=== PATIENT | female | born 1975 | race Caucasian/White ===

== ENCOUNTER → 2020-11-11 13:03 | Outpatient (CLI) | payer OTHER, SELFPAY ==
[2020-11-11 14:53] LABS: COVID19 -Nasal RAPID Negative (Negative)
== END ==
PROVIDERS: PCP Family Medicine; Visit Provider Nurse Practitioner
DX: Z20.828 Contact with and (suspected) exposure to other viral communicable diseases (principal)
CPT/HCPCS: 87635

== ENCOUNTER 2020-11-12 06:25 | Inpatient (IN) | payer OTHER, SELFPAY ==
[2020-11-03 12:51] VITALS: BMI 36.6
[2020-11-12] VITALS (23 sets, daily range): BP systolic 106–150; BP diastolic 63–88; PULSE 72–98; RESP 12–19; TEMP 36.1–37.1; O2SAT 93–99; BMI 38.6
--- NOTE | 2020-11-12 | DI.RAD.S_ITS ---
PROCEDURE: XR CERVICAL SPINE 2V OR 3V INDICATIONS: C56-C67 ANTERIOR DISCECTOMY W/ BONE GRAFT. TECHNIQUE: 2 fluoroscopic view(s) of the cervical spine were acquired. COMPARISON: [facility] [place], CR, XR CERVICAL SPINE 2 OR 3 VIEWS, 09/23/2020, 16:22. FINDINGS: Intraoperative images of C5-C6 and C6-C7 discectomy. Endotracheal tube. Intra esophageal temperature probe. IMPRESSION: Intraoperative guidance provided. Dictated by: Jorge Luis Gómez M.D. on 11/12/2020 at 9:37 Approved by: Jorge Luis Gómez M.D. on 11/12/2020 at 9:39
--- NOTE | 2020-11-12 07:14 | PM.PREOP ---
Pre-operative Note COVID-19 COVID-19 status: Negative Result date/Date tested (Pos, Neg/Pending): 11/11/20 Interval Note History & Physical reviewed/Exam performed by Physician: Yes Changes to H&P: No
[2020-11-12] MEDS: ACETAMINOPHEN 325 MG TABLET 975 MG PO (07:19)
[2020-11-12] MEDS: SCOPOLAMINE 1 PATCH TOP (07:19)
[2020-11-12] MEDS: LACTATED RINGERS 1,000 ML 42 ML IV (07:19)
[2020-11-12] MEDS: CLINDAMYCIN 900 MG/50 ML PIGGYBACK 50 MG IV ×2 (07:54→15:56)
--- NOTE | 2020-11-12 08:15 | SUR.OPER ---
Supine on padded OR bed, head on gel donut, arm padded and tucked at side, legs uncrossed, safety belt at thigh, tape over blanket over lower legs, 2 rolled towels vertically placed between Shoulder blades.
[2020-11-12] MEDS: THROMBIN (RECOMBINANT) 5,000 UNIT VIAL 5000 UNIT TOP (08:45)
[2020-11-12] MEDS: SODIUM CHLORIDE 0.9% 1,000 ML, GENTAMICIN 80 MG IRR (08:46)
[2020-11-12] MEDS: BUPIVACAINE 0.25% W/ EPI 30 ML VIAL 60 ML INJ (08:46)
--- NOTE | 2020-11-12 09:23 | PM.OP.1 ---
Operative Date/Time/Diagnoses Date of procedure: 11/12/20 Time of procedure: 09:23 Pre-op diagnosis: Cervical stenosis with myelopathy Post-op diagnosis: same Procedure & Clinicians Procedure: C5-6, C6-7 ACDF with cages Iliac crest bone graft aspirate Use of microscope Same procedure as scheduled: Yes Indications: [age] year old female with cervical stenosis and myelopathy. They had failed conservative management and requested operative intervention. Risks and benefits of surgery were discussed and appropriate consents were obtained. Surgeon: Tyrel Rojo Bias Machine Operator Helper: Jessica Amador Anesthesia Type: General Operative Notes Findings: None Closure Type: primary Specimen(s): none sent Prosthetic devices, grafts, tissues, transplants, or devices: Efrem MEENAKSHI-C Estimated Blood Loss (mL): 5 Procedure in detail: Patient was brought to the operating room and intubated on the table. A time-out was performed. Preoperative antibiotics were given. The neck was prepped and draped in the standard sterile fashion. Using a skin fold, we made a 3 cm oblique incision on the left side. We used Bovie to go through the platysma and then did a standard anterolateral blunt dissection down to the precervical fascia. Fascia was nicked and elevated up. A marker was placed and x-ray was taken for localization. We then subperiosteally elevated up the longus colli muscles. Self-retaining retractors were placed. Hartly pins were placed. We then brought in the microscope. A scalpel used to perform an annulotomy. We then used a combination of pituitaries and curettes and Kerrison to perform a complete anterior diskectomy at C5-6. We used the bur to take down the posterior osteophytes and decorticate the endplate. We took down the PLL and used Kerrison to remove any posterior disc material and osteophytes. At the end we could from the nerve hook cephalad caudally and out the foramen and everything was opened. A small stab incision was made over the left anterior iliac crest. A Jamshidi needle was advanced into the pelvis and 2 mL of bone marrow was aspirated. We then used the trials. We then packed a 14 x 17 x 6 mm MEENAKSHI-C cage with Primagen bone graft and the iliac crest harvest. The cage was placed under fluoroscopic guidance. We then placed our two locking plates. We then moved our retractors down to the C6-7 level. A C6-7 diskectomy was performed with an annulotomy, pituitaries, curettes, and Kerrisons. We used the bur to decorticate the endplates and and take down the posterior osteophytes. The PLL was removed. We cleared all the remaining posterior material until we could easily move the nerve hook with no pressure. We trialed and then placed another 14 x 17 x 6 mm cage with bone graft and locking plate. The self-retaining retractors and Hartly pins were removed and final x-rays taken. The wound was irrigated. There was no bleeding. The carotid was beating nicely. The platysma was closed. The superficial was closed. The skin was closed. A sterile dressing was placed. They were then extubated and brought to recovery room with no complications. Complications: none Post-operative Condition: stable Disposition: PACU Plan for aftercare: Inpatient overnight. Up with PT. Soft collar for comfort.
[2020-11-12] MEDS: LORazepam 2 MG/ML INJ 0.25 MG IV (09:38)
[2020-11-12] MEDS: fentaNYL 100 MCG/2 ML INJ IV ×2 (09:46→09:57)
[2020-11-12] MEDS: OXYCODONE IR 5 MG TABLET PO ×2 (10:01→10:31)
[2020-11-12] MEDS: LACTATED RINGERS 1,000 ML 125 ML IV (10:56)
--- NOTE | 2020-11-12 14:50 | PT.IIE ---
Current Diagnoses Spondylosis without myelopathy or radiculopathy, cervical region (11/12/20) Spinal stenosis, cervical region (11/12/20) Surgery Performed Operation Date: 11/12/20 07:45 Actual Procedures p C56 and C67 Anterior cervical discectomy and fusion w/bone graft - Tyrel Rojo MD Surgical History (Last Updated 11/03/20 @ 13:14 by Chantal Galeas, RN) History of arthroscopy of both knees Hx of appendectomy Hx of laparoscopy Status post loop electrosurgical excision procedure (LEEP) of cervix Medical History (Last Updated 11/03/20 @ 13:18 by Chantal Galeas RN) Anemia Arthritis MARIBEL III (cervical intraepithelial neoplasia III) Constipation Depression Easy bruisability GERD (gastroesophageal reflux disease) HLD (hyperlipidemia) Kidney injury Nightmares associated with chronic post-traumatic stress disorder Pneumonia PTSD (post-traumatic stress disorder) Physical Therapy Inpatient Evaluation/Re-Eval M1 PT/OT-IP Prior Functional Status Start: 11/12/20 14:49 Freq: NEEDED Status: Active Protocol: Document 11/12/20 14:50 DLM (Rec: 11/12/20 15:05 DLM [id number]) Medical Review Prior Functional Status Medical History Reviewed Yes Diet/Fluid Consistency Regular Communication WNL Mobility and Gait Independent without device, community distances Activities of Daily Living and IADL's Independent, UE's were getting progressively weaker due to neck issues Social History Household Members spouse,children Living Arrangements Mobile home Number of Floors (Floors) One Floor Number of Stairs To Enter/Railing? 2 with two rails Home Environment High Toilet Home Equipment Grab Bars In Shower Additional Social History Comment Pt and her work in home health care, pt has been having difficulty with lifting associated with her neck pain M2 PT-IP Current Condition Start: 11/12/20 14:49 Freq: NEEDED Status: Active Protocol: Document 11/12/20 14:50 DLM (Rec: 11/12/20 15:05 DLM [id number]) Physical Therapy Current Condition Current Condition Evaluation Date 11/12/20 Treatment Diagnosis C5-6, C6-7 ACDF with cage, impaired mobility/gait Onset Date 11/12/20 Precautions Cervical Spine Precautions Soft Collar for Comfort,No Heavy Lifting,Log Roll Other Precautions pt reports plan for her to get a bone stimulator post-op M3 PT-IP Subjective Start: 11/12/20 14:49 Freq: NEEDED Status: Active Protocol: Document 11/12/20 14:50 DLM (Rec: 11/12/20 15:05 DL [id number]) Subjective Physical Therapy Visit Type Type Initial Evaluation Visit Start Time 14:20 Visit Stop Time 14:50 Total Visit Minutes 30 Number of GUN EXAMINER Visits 0 Physical Therapy Visit Comments Patient Comments she reports her arms feel warm which is better than before surgery where they were always cold, her arms still feel weak Patient Goals discharge home Therapy Pain Assessment Pain When Pain Assessed After Treatment Pain Present Pain Present Pain Reported Location Posterior Neck Intensity 3 Scale Used Numeric (0 - 10) Description Aching Pain Behaviors Facial Grimacing Pain Management Techniques Re-positioning M4 PT-IP Mobility and Gait Start: 11/12/20 14:49 Freq: NEEDED Status: Active Protocol: Document 11/12/20 14:50 DLM (Rec: 11/12/20 15:05 [facility] [id number]) PT-Bed Mobility Assessment Rolling Type of Rolling Roll to Right Level of Assist Independent Supine to Sit Supine to Sit Standby Assistance,Head of Bed Elevated Sit to Supine Sit to Supine Independent Scooting Scooting to Edge of Bed Independent PT-Transfer Assessment Sit to and From Stand Sit to and from Stand Standby Assistance,Contact Guard Assistance Equipment Transfer Assistive Device None Transfers Transfer Destination Bedside Commode Transfer Technique Stand Step Pivot Transfer Ability Level of Assist Contact Guard Assistance,Use of Upper Extremities Comments Mobility Comments she reports feeling a little unsteady on her feet post-op and needed hand held assist when up on her feet moving Gait Assessment Gait Gait Assistance Required: Contact Guard Assist,Minimum Assistance Distance (Feet) 20 Assistive Devices Assistive Device Gait Belt Orthotic/Prosthetic Devices or Brace: Yes Factors Limiting Gait Function Factors Limiting Gait Function Decreased Activity Tolerance, Pain,Poor Balance Comments Gait Comments she gets tired with gait, seated rest breaks between 2 gait trials, pt also up to bedside commode to urinate PT-Balance Assessment Sitting Balance and Reactions Static Sitting Balance Ability Normal Dynamic Sitting Balance Ability Good Standing Balance and Reactions Static Standing Balance Ability Fair Dynamic Standing Balance Ability Fair M5 PT-IP Objective Assessments Start: 11/12/20 14:49 Freq: NEEDED Status: Active Protocol: Document 11/12/20 14:50 DLM (Rec: 11/12/20 15:05 DL [id number]) Orientation Orientation/Cognition Level of Alertness Alert Orientation Name,Age,Birthday,Month,Date, Year,Day of Week,Place, Situation Language Function Ability No Deficits Noted Safety Awareness Understands Safety Issues Memory Description No Deficits Noted Gross Range of Motion Upper Extremity ROM Assessment Within Functional Limits Impairments cervical ROM not tested since she is post-op and in soft cervical collar Lower Extremity ROM Assessment Within Functional Limits Strength Upper Extremity Strength Shoulder moving functionally, not tested to end ranges since surgery today Elbow WFL Wrist WFL Hand WFL Lower Extremity Strength Assessment Within Functional Limits Coordination Assessment Gross Coordination Gross Coordination WNL Sensation Assessment Comments Sensation Comments she describes her arms as feeling warm today, she reports her feet burn if they get too small business consultant bed Muscle Tone Muscle Tone WNL Yes M6 PT-IP Treatment Start: 11/12/20 14:49 Freq: NEEDED Status: Active Protocol: Document 11/12/20 14:50 DLM (Rec: 11/12/20 15:05 DL [id number]) Physical Therapy Treatment Education Education Provided Precautions,Post-Op Packet, Safety Other Treatments Other Treatment Performed Her spouse is present and answered his questions about post-op restrictions and progression M7 PT-IP Assessment and Plan Start: 11/12/20 14:49 Freq: NEEDED Status: Active Protocol: Document 11/12/20 14:50 DLM (Rec: 11/12/20 15:05 DLM [id number]) PT Summary Assessment and Plan Potential Rehabilitation Potential Excellent Status of Condition at Evaluation Evolving Summary Impairments Pain,ROM,Strength Assessment Summary Abigail is alert and willing to get out of bed today. She tolerated short distances of gait in the room with mild unsteadiness. Her is present this visit and is prepared to assist her at discharge. She fatigues quickly today and returned to bed after activity where she fell asleep. She is tolerating her soft cervical collar well over-all. If she continues to progress well I anticipate she will be able to discharge home tomorrow. Will plan to see her again tomorrow for additional post-op training. Goals Bed Mobility Goal Independent Transfer Goal Independent Gait Goal Independent Gait Distance 100 feet Other Goals up and down 2 steps with 2 rails and SBA Days to Meet Goals 2 Frequency of Treatment Frequency Of Treatment Twice a Day Treatment Plan Physical Therapy Treatment Plan Bed Mobility Training,Transfer Training,Gait Training, Therapeutic Exercise,Balance Retraining,Post Op Education, Discharge Planning,Hot or Cold Pack Recommendations To Nursing Amount of Assist Needed 1 Person Assist Discharge Recommendations PT Discharge Recommendations Home with Assistance Transportation Needs at Discharge Private Vehicle
[2020-11-12] MEDS: OXYCODONE IR 5 MG TABLET 10 MG PO ×3 (15:56→23:25)
[2020-11-12] MEDS: CYCLOBENZAPRINE 10 MG TABLET PO (18:22)
[2020-11-12] MEDS: PRAZOSIN 1 MG CAPSULE 4 MG PO (20:33)
[2020-11-12] MEDS: buPROPion SR 150 MG TAB PO (20:34)
[2020-11-12] MEDS: FAMOTIDINE 20 MG TABLET PO (20:34)
[2020-11-12] MEDS: SENNOSIDES 8.6 MG TABLET 17.2 MG PO (20:35)
[2020-11-12] MEDS: MELOXICAM 7.5 MG TABLET PO (20:35)
[2020-11-12] MEDS: DOCUSATE 100 MG CAPSULE PO (20:35)
[2020-11-12] MEDS: LOVASTATIN 20 MG TABLET 40 MG PO (20:36)
[2020-11-12] MEDS: GABAPENTIN 300 MG CAPSULE 600 MG PO (20:36)
[2020-11-12] MEDS: hydrOXYzine pamoate 25 MG CAPSULE PO (23:31)
[2020-11-13 02:10] VITALS: BP 132/70; PULSE 96; RESP 18; TEMP 37; O2SAT 95
[2020-11-13] MEDS: OXYCODONE IR 5 MG TABLET 10 MG PO ×3 (02:22→09:22)
[2020-11-13] MEDS: CLINDAMYCIN 900 MG/50 ML PIGGYBACK 50 MG IV (02:22)
[2020-11-13 04:40] VITALS: BP 132/70; PULSE 96; RESP 18; TEMP 37; O2SAT 95
[2020-11-13] MEDS: hydrOXYzine pamoate 25 MG CAPSULE PO ×2 (05:19→09:21)
[2020-11-13 07:28] VITALS: BP 126/64; PULSE 89; RESP 13; TEMP 37.1; O2SAT 97
--- NOTE | 2020-11-13 08:47 | PM.PNPO.1 ---
Subjective Subjective Date Patient Seen: 11/13/20 Time Patient Seen: 08:47 Interval history: She is doing well. Her arms feel normal again Pain is manageable with oral medication. She has had some itching with the oxycodone but the Vistaril seems to be working on this without any side effects. Exam Vital Signs (past 8 hours): - 11/13/20 02:10 11/13/20 04:40 11/13/20 07:28 Temperature 98.6 F 98.6 F 98.8 F Pulse Rate 96 H 96 H 89 Respiratory Rate 18 18 13 Blood Pressure 132/70 132/70 126/64 Pulse Oximetry 95 95 97 Oxygen Delivery Method Nasal Cannula Oxygen Flow Rate 1 Const Orientation: alert and oriented x3 Back/Spine/Pelvis Other: CDI. 5/5 motor both upper extremities. PFSH Medical History (Updated 11/03/20 @ 13:18 by Chantal Galeas RN) Anemia Arthritis MARIBEL III (cervical intraepithelial neoplasia III) Constipation Depression Easy bruisability GERD (gastroesophageal reflux disease) HLD (hyperlipidemia) Kidney injury Nightmares associated with chronic post-traumatic stress disorder Pneumonia PTSD (post-traumatic stress disorder) Surgical History (Updated 11/03/20 @ 13:14 by Chantal Galeas RN) History of arthroscopy of both knees Hx of appendectomy Hx of laparoscopy Status post loop electrosurgical excision procedure (LEEP) of cervix Social History household members: spouse and children Smoking Status: Former smoker alcohol intake: current Assessment & Plan Post-op Postoperative Procedures: Procedures Operation Date: 11/12/20 07:45 Actual Procedures Side Surgeon p C56 and C67 Anterior cervical discectomy and fusion w/bone graft Tyrel Rojo MD she is doing well. We will get her up 1 more time with therapy this morning and then discharge home.
[2020-11-13] MEDS: FLUTICASONE 120 SPRAY/16 GM SPRAY.SUSP NASAL (09:15)
[2020-11-13] MEDS: LORATADINE 10 MG TABLET PO (09:21)
[2020-11-13] MEDS: MELOXICAM 7.5 MG TABLET PO (09:21)
[2020-11-13] MEDS: DOCUSATE 100 MG CAPSULE PO (09:21)
[2020-11-13] MEDS: AMLODIPINE 5 MG TABLET PO (09:21)
[2020-11-13] MEDS: FAMOTIDINE 20 MG TABLET PO (09:22)
[2020-11-13] MEDS: buPROPion SR 150 MG TAB PO (09:22)
[2020-11-13] MEDS: INFLUENZA VACCINE 0.5 ML SYRINGE IM (09:23)
--- NOTE | 2020-11-13 10:02 | OT.IP.EVAL ---
Current Diagnoses Spondylosis without myelopathy or radiculopathy, cervical region (11/12/20) Spinal stenosis, cervical region (11/12/20) Surgery Performed Operation Date: 11/12/20 07:45 Actual Procedures p C56 and C67 Anterior cervical discectomy and fusion w/bone graft - Tyrel Rojo MD Past Medical History (Last Updated 11/03/20 @ 13:18 by Chantal Galeas, RN) Anemia Arthritis MARIBEL III (cervical intraepithelial neoplasia III) Constipation Depression Easy bruisability GERD (gastroesophageal reflux disease) HLD (hyperlipidemia) Kidney injury Nightmares associated with chronic post-traumatic stress disorder Pneumonia PTSD (post-traumatic stress disorder) Surgical History (Last Updated 11/03/20 @ 13:14 by Chantal Galeas RN) History of arthroscopy of both knees Hx of appendectomy Hx of laparoscopy Status post loop electrosurgical excision procedure (LEEP) of cervix Occupational Therapy Inpatient Evaluation/Re-Eval M1 PT/OT-IP Prior Functional Status Start: 11/12/20 14:49 Freq: NEEDED Status: Active Protocol: Document 11/13/20 12:55 CGR (Rec: 11/13/20 13:12 CGR [id number]) Medical Review Prior Functional Status Medical History Reviewed Yes Diet/Fluid Consistency Regular Communication WNL Mobility and Gait Independent without device, community distances Activities of Daily Living and IADL's Independent, UE's were getting progressively weaker due to neck issues Social History Household Members spouse,children Living Arrangements Mobile home Number of Floors (Floors) One Floor Number of Stairs To Enter/Railing? 4 with two rails Home Environment High Toilet Home Equipment Grab Bars In Shower Additional Social History Comment Pt and her work in home health care, pt has been having difficulty with lifting associated with her neck pain M2 OT-IP Current Condition Start: 11/13/20 12:54 Freq: Status: Active Protocol: Document 11/13/20 12:55 CGR (Rec: 11/13/20 13:12 CGR [id number]) Occupational Therapy Current Condition Current Condition Evaluation Date 11/13/20 Treatment Diagnosis C5-7 ACDF (soft collar for comfort) Diagnosis Onset Date 11/12/20 Post Operative Precautions Cervical Spine Precautions Soft Collar for Comfort,No Heavy Lifting M3 OT- IP Subjective and Pain Start: 11/13/20 12:54 Freq: Status: Active Protocol: Document 11/13/20 12:55 CGR (Rec: 11/13/20 13:12 CGR [id number]) OT- Subjective Occupational Therapy Visit Type Type Initial Evaluation Visit Start Time 09:31 Visit Stop Time 10:02 Total Visit Minutes 31 OT Pain Assessment Pain When Pain Assessed During Mobility Pain Present Pain Present Pain Reported Location Posterior Neck Intensity 5 Scale Used Numeric (0 - 10) Management Techniques Distraction,Modification of Treatment,Re-positioning M4 OT- IP ADL's Start: 11/13/20 12:54 Freq: Status: Active Protocol: Document 11/13/20 12:55 CGR (Rec: 11/13/20 13:12 CGR [id number]) OT [id number] Comments OT Self-Feeding Comments not meal time OT ADL-Grooming General Evaluation Grooming Ability Standby Assistance Areas Needing Assistance Face Washing Comments OT Grooming Comments standing at sink OT ADL-Oral Care General Eval Oral Care Ability Standby Assistance Areas of Assistance Brushing Teeth,Retrieving/Set- Up of Items Comments Oral Care Comments standing at sink OT ADL-Dressing General Eval Upper Body Dressing Ability Independent Lower Body Dressing Ability Standby Assistance Areas Needing Assistance Pull-Over Shirt,Underpants/ Brief,Pants/Shorts,Socks Comments OT Dressing Comments seated EOB, pt able to perform without AD. OT ADL-Toileting General Evaluation Toileting Ability Standby Assistance Comments OT Toileting Comments simulated but pt did not void OT ADL-Bathing Comments OT Bathing Comments not performed M5 OT- IP IADL's Start: 11/13/20 12:54 Freq: Status: Active Protocol: Document 11/13/20 12:55 CGR (Rec: 11/13/20 13:12 CGR [id number]) OT-Instrumental Activities of Daily Living Deficits IADL Deficits Identified No Deficits Home Safety Awareness Awareness of Need for Assistance at Home Good Awareness Ability to Problem Solve Emergency Able to Problem Solve Situations Medication Management Medication Management No Deficits Identified Money Management Money Management No Deficits Identified Meal Preparation Meal Preparation No Deficits Identified Car Pilot Car Pilot Caregiver Provides Assist Driving Driving 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 OT- IP Functional Cognition Start: 11/13/20 12:54 Freq: Status: Active Protocol: Document 11/13/20 12:55 CGR (Rec: 11/13/20 13:12 CGR [id number]) Cognitive Factors Limiting Selfcare Function Cognitive Ability Level of Alertness Alert Patient Orientation Name,Age,Birthday,Month,Date, Year,Day of Week,Place, Situation Attention Span Ability Capable of Focused Attention, Capable of Sustained Attention Ability to Follow Commands Able to Follow Multi-Step Commands Memory Description No Deficits Noted Safety Awareness No Deficits Noted OT- Vision and Hearing OT- Hearing Assessment OT- Hearing Assessment WFL OT- Vision Assessment Visual Acuity WFL Visual Attentiveness WFL Occular Pursuits WFL Visual Convergence WFL M7 OT- IP Mobility and Balance Start: 11/13/20 12:54 Freq: Status: Active Protocol: Document 11/13/20 12:55 CGR (Rec: 11/13/20 13:12 CGR [id number]) OT- Bed Mobility Assessment Rolling Level of Assistance Standby Assistance,Head of Bed Elevated Supine to Sit Supine to Sit Assist Standby Assistance,Head of Bed Elevated Scooting Scooting to Edge of Bed Standby Assistance OT-Transfer Assessment Sit to and From Stand Sit to and from Stand Standby Assistance,Contact Guard Assistance Transfers Transfer Ability Standby Assistance,Contact Guard Assistance Technique Transfer Destination Bed,Toilet Transfer Technique Stand Step Pivot Devices Transfer Assistive Devices Gait Belt Comments Mobility Comments mobility around the room OT- Balance Assessment Sitting Balance and Reactions Static Sitting Balance Ability Good Dynamic Sitting Balance Ability Fair M8 OT- IP Objective Assessments Start: 11/13/20 12:54 Freq: Status: Active Protocol: Document 11/13/20 12:55 CGR (Rec: 11/13/20 13:12 CGR [id number]) OT Gross Range of Motion Upper Extremity Range of Motion Assessment Within Functional Limits ROM Impairments B shlds impaired at this time d/t pain. OT Strength Comments Strength Comments grossly 4-/5 OT- Coordination Assessment Upper Extremity Finger to Nose Test Within Functional Limits Finger Tapping Test Within Functional Limits OT-Muscle Tone Assessment Muscle Tone WNL Yes OT Sensation Assessment Edema Edema Absent M9 OT- IP Assessment and Plan Start: 11/13/20 12:54 Freq: Status: Active Protocol: Document 11/13/20 12:55 CGR (Rec: 11/13/20 13:12 CGR [id number]) OT Summary Assessment and Plan Potential Rehabilitation Potential Excellent Analytic Complexity at Evaluation Moderate Summary OT Impairments Pain,Range of Motion,Balance, Functional Mobility,Grooming, Dressing,Toileting,Bathing, Toilet Transfers,Shower Transfers,Activity Tolerance Progress Towards Goals Slow Progress due to Pain Assessment Summary Pt presents as a moderate complexity evaluation s/p admit fro C5-7 ACDF. Pt demonstrates mobility requiring CGA and reaching for furniture as she moves around the room. Pt is planned for discharge home today with her . Addressed home safety and self care. plans to be with pt for 2 weeks at time of discharge. Goals Grooming Goal Independent Dressing Goal Independent Toileting Goal Independent Bathing Goal Independent Toilet Transfer Goal Independent Shower Transfer Goal Independent Days to Meet Goals 2 Frequency of Treatment Frequency Of Treatment Once a Day Treatment Plan OT Treatment Plan ADL Training,Functional Cognition Training,Functional Mobility,Patient/Family Education,Discharge Planning Other Treatment Recommendations and Next shower Treatment Focus Discharge Recommendations OT Discharge Recommendations Home with Assistance Transportation Needs at Discharge Private Vehicle
--- NOTE | 2020-11-13 10:29 | PT.IPTN ---
Current Diagnoses Spondylosis without myelopathy or radiculopathy, cervical region (11/12/20) Spinal stenosis, cervical region (11/12/20) Surgery Performed Operation Date: 11/12/20 07:45 Actual Procedures p C56 and C67 Anterior cervical discectomy and fusion w/bone graft - Tyrel Rojo MD Physical Therapy Treatment Note M2 PT-IP Current Condition Start: 11/12/20 14:49 Freq: NEEDED Status: Active Protocol: Document 11/12/20 14:50 DLM (Rec: 11/12/20 15:05 DLM [id number]) Physical Therapy Current Condition Current Condition Evaluation Date 11/12/20 Treatment Diagnosis C5-6, C6-7 ACDF with cage, impaired mobility/gait Onset Date 11/12/20 Precautions Cervical Spine Precautions Soft Collar for Comfort,No Heavy Lifting,Log Roll Other Precautions pt reports plan for her to get a bone stimulator post-op M3 PT-IP Subjective Start: 11/12/20 14:49 Freq: NEEDED Status: Active Protocol: Document 11/13/20 10:15 CLB (Rec: 11/13/20 10:41 CLB [id number]) Subjective Physical Therapy Visit Type Type Treatment Note Visit Start Time 10:15 Visit Stop Time 10:29 Total Visit Minutes 14 Notes Sanchez present for CG training. Number of ELECTRIC CLOCK MECHANIC Visits 1 Physical Therapy Visit Comments Patient Comments Pt states she is sleepy from meds but wants to do therapy. Patient Goals discharge home M4 PT-IP Mobility and Gait Start: 11/12/20 14:49 Freq: NEEDED Status: Active Protocol: Document 11/13/20 10:15 CLB (Rec: 11/13/20 10:41 CLB [id number]) PT-Transfer Assessment Sit to and From Stand Sit to and from Stand Contact Guard Assistance Equipment Transfer Assistive Device Gait Belt Transfers Transfer Destination Wheelchair Transfer Technique Stand Step Pivot Transfer Ability Level of Assist Contact Guard Assistance,Use of Upper Extremities Comments Mobility Comments pt stood from chair CGA and ambulated ~4ft to WC CGA. Pt sat in WC SBA. Pt stood from WC CGA provided by , pt walked to stairs ~2ft climbed three stairs with bilateral rails SBA provided by . Pt then ambulated in patten ~ 40ft with providing CGA. Pt then sat in WC for remainder of the way back to room. Pt stood CGA and ambulated to chair, sitting in chair SBA. Pt left in chair with all needs within reach and present. Informed Rn of pt mobility. Gait Assessment Gait Gait Assistance Required: Contact Guard Assist Distance (Feet) 40 Assistive Devices Assistive Device Gait Belt Orthotic/Prosthetic Devices or Brace: Yes Factors Limiting Gait Function Factors Limiting Gait Function Decreased Activity Tolerance, Pain,Poor Balance Comments Gait Comments Pt ambulates slowly and carefully but is able to ambulate with ~40ft. Stair Climbing Assessment Evaluation Level of Assist On Stairs Standby Assistance,Contact Guard Assistance,1 Person Assistance Devices Stair Climbing Assistive Devices Left Railing,Right Railing Technique/Endurance Stair Climbing Direction Ascend and Descend Stair Climbing Technique Step Over Step,Step to Step Number of Steps Climbed 3 Stair Climbing Set # Repetitions (reps) 1 Comments Stair Climbing Comments pt's able to appropriately assist pt with stair climbing. M5 PT-IP Objective Assessments Start: 11/12/20 14:49 Freq: NEEDED Status: Active Protocol: Document 11/12/20 14:50 DLM (Rec: 11/12/20 15:05 DL [id number]) Orientation Orientation/Cognition Level of Alertness Alert Orientation Name,Age,Birthday,Month,Date, Year,Day of Week,Place, Situation Language Function Ability No Deficits Noted Safety Awareness Understands Safety Issues Memory Description No Deficits Noted Gross Range of Motion Upper Extremity ROM Assessment Within Functional Limits Impairments cervical ROM not tested since she is post-op and in soft cervical collar Lower Extremity ROM Assessment Within Functional Limits Strength Upper Extremity Strength Shoulder moving functionally, not tested to end ranges since surgery today Elbow WFL Wrist WFL Hand WFL Lower Extremity Strength Assessment Within Functional Limits Coordination Assessment Gross Coordination Gross Coordination WNL Sensation Assessment Comments Sensation Comments she describes her arms as feeling warm today, she reports her feet burn if they get too spa director/finance bed Muscle Tone Muscle Tone WNL Yes M6 PT-IP Treatment Start: 11/12/20 14:49 Freq: NEEDED Status: Active Protocol: Document 11/12/20 14:50 DLM (Rec: 11/12/20 15:05 DLM [id number]) Physical Therapy Treatment Education Education Provided Precautions,Post-Op Packet, Safety Other Treatments Other Treatment Performed Her spouse is present and answered his questions about post-op restrictions and progression M7 PT-IP Assessment and Plan Start: 11/12/20 14:49 Freq: NEEDED Status: Active Protocol: Document 11/13/20 10:15 CLB (Rec: 11/13/20 10:41 CLB [id number]) PT Summary Assessment and Plan Potential Rehabilitation Potential Excellent Status of Condition at Evaluation Evolving Summary Impairments Pain,ROM,Strength Assessment Summary Pt is SBA-CGA for all mobility , pt ambulated ~40ft and climbed stairs with CGA provided by . Pt continues to feel a little unsteady during gait and will be able to provide CGA at d/c. Goals Bed Mobility Goal Independent Transfer Goal Independent Gait Goal Independent Gait Distance 100 feet Other Goals up and down 2 steps with 2 rails and SBA Days to Meet Goals 2 Frequency of Treatment Frequency Of Treatment Twice a Day Treatment Plan Physical Therapy Treatment Plan Bed Mobility Training,Transfer Training,Gait Training, Therapeutic Exercise,Balance Retraining,Post Op Education, Discharge Planning,Hot or Cold Pack Recommendations To Nursing Amount of Assist Needed 1 Person Assist Discharge Recommendations PT Discharge Recommendations Home with Assistance Transportation Needs at Discharge Private Vehicle
--- NOTE | 2020-11-13 11:08 | PC.NURSE ---
Day shift: Paperwork signed and all questions answered. Dressing is CDI. Soft collar tolerated. Pt reports being sleepy from the Vistaril. Pt has MD mckeon. Pt has all personal belongings. Taken to car driven by her spouse by SECOND WATCH SERGEANT in . Pt denies any nausea at this time as well. CMS intact. Passed PT and d/c'd at this time.
--- NOTE | 2020-11-13 14:58 | CM.DANOTE ---
Discharge Planning/Care Management DCP: assessment: case received, EMR reviewed. Discussed in Team Rounds. PT and OT were planning to see pt today. Pt admitted yesterday for a scheduled spinal/cervical surgery. Surgeon: Dr. Rojo. A check in late morning after Rounds showed that pt had been cleared by therapy and had d/c'd to home in company of spouse. No d/c concerns noted by the care team members. CM Discharge Assessment Start: 11/13/20 14:57 Freq: Status: Discharge Protocol: Document 11/13/20 14:58 ITV (Rec: 11/13/20 14:58 ITV [id number]) Discharge Planning Assessment Advance Directives? No History Provided By Patient,Medical Record Prior Living Arrangements Mobile home Household Members spouse,children Pre-Anesthesia Assessment Start: 11/03/20 12:51 Freq: Status: Complete Protocol: Document 11/03/20 12:51 CAB (Rec: 11/03/20 13:30 CAB [id number]) Pre-Anesthesia Assessment Patient Information Reviewed Via Phone Assessment Assessment Completed With Patient Diagnostic Results CBC Comment Outside labs scanned, COVID screen @ [facility] 11/11/20 Primary Care Provider Marcie Dumont Seen Specialist in Last 12 Months Yes Specialist Seen Orthopedist Primary Language Albanian Office Services Manager Required No Height 165.1 cm Weight 99.79 kg Body Mass Index (BMI) 36.6 Hearing Ability Normal Visual Assist Glasses Dentition Type Full- Upper & Lower Barriers to Learning None Hx Anesthesia Reactions Yes: Morphine causes breathing problems Additional comment I have woken up during on the surgery Hx Family Anesthesia Reaction No Hx Malignant Hyperthermia No Hx Blood Transfusions No Anesthesia Review Requested No alcohol intake current alcohol intake frequency holidays/special occasions only Smoking Status Former smoker how long ago did patient quit smoking Quit 06/10/20 Substance Use Type other Comment CBD gummies Pain Present Pain Reported Musculoskeletal Symptoms Joint Pain,Limited Range of Motion,Neck Pain,Radiating Pain into Limb History of Falling (Recent or History of No ) Comment Balance issues Patient is completely paralyzed or No completely immobile Mental Status Oriented to own ability Is patient on oxygen? No Does patient have WALKER/SOB No Hx Sleep Apnea No Currently Taking a Beta Go No Can You Climb a Flight of Stairs Without No: I get a little sob, I SOB smoked for a long time Hx Chest Pain No Hx SOB No Hx Syncope or Dizziness No Anti-Coagulant Therapy No Has a Telephone Order Supervisor No Cardiac Testing No Hx Pacemaker/ICD No Pacemaker Rep Required? No Cardiac Clearance Received Not Applicable Diet Type At Home Regular dysphagia No Gastrointestinal Symptoms Constipation,Reflux Bladder Pattern Incontinent, Stress Urinary Catheter Present No Hx Urinary Self Catheterization No Diabetes No Patient No Lactating No Hx Drug Resistant Organism No Presence of External or Internal Medical No Devices Have you had any close contact with No someone diagnosed with COVID-19? Marital Status Lives With spouse,children Prior Living Arrangements Mobile home Support System Child/Children,Spouse Does the Patient Have Assistance After Yes Surgery Patient Discharge Plan Description Return Home Comment Pt advised 1-2 day length of stay per surgeon Feels Safe in Current Environment Yes Been Physically Hurt or Threatened By a No Person in Current Environment Do you have thoughts of harming yourself None or others? Are you currently considering suicide? No Do you have a plan to hurt yourself or No Plan others? Do You Have Any Spiritual Beliefs That No May Affect Your HC Choices? Do You Have Any Cultural Practices That No May Affect Your HC Choices? Who Can We Speak to About Patient's Care Family, friends Identifying Code for Release of Patient Declines to issue Information Health Care Proxy/Next of Kin Sanchez () Kimberly ( sister) Health Care Proxy Phone Number Sanchez: [phone] Kimberly: [phone] Emergency Contact Name Sanchez () Kimberly ( sister) Emergency Contact Phone Number Sanchez: [phone] Kimberly: [phone] Advance Directives? No Power of Corrosion Prevention Metal Sprayer No PAC Instructions Medications to take/avoid, Nasal antibiotic,No ETOH/ petroleum product on skin DOS, NPO,Sensory aids,Sturdy shoes/ comfortable clothes,Do not bring valuables and remove jewelry
== END 2020-11-13 11:10 | disposition home or self-care (01) | DRG 472 ==
PROVIDERS: Admitting Provider Orthopaedic Surgery; PCP Family Medicine; Referring Provider Family Medicine; Visit Provider Orthopaedic Surgery
PROC: 0RG20A0 Fusion of 2 or more Cervical Vertebral Joints with Interbody Fusion Device, Anterior Approach, Anterior Column, Open Approach (ICD-10-PCS; principal; 2020-11-12 07:45)
DX: M48.02 Spinal stenosis, cervical region (principal); M47.12 Other spondylosis with myelopathy, cervical region; F32.9 Major depressive disorder, single episode, unspecified; K21.9 Gastro-esophageal reflux disease without esophagitis; E66.9 Obesity, unspecified; Z20.828 Contact with and (suspected) exposure to other viral communicable diseases; Z87.891 Personal history of nicotine dependence; Z68.38 Body mass index [BMI] 38.0-38.9, adult
CPT/HCPCS: 72040; 76000; 87635; 90471; 90656; 97116; 97162; 97166; 97535; C1776; A9270; J0330; J1100; J2060; J2250; J2405; J2704; J3010; Q2038

== ENCOUNTER → 2021-08-10 14:40 | Outpatient (CLI) | payer OTHER, SELFPAY ==
[2020-11-12 10:59] VITALS: BMI 38.6
--- NOTE | 2021-08-10 | DI.RAD.S_ITS ---
PROCEDURE: XR SHOULDER RT MIN 2V INDICATIONS: right shoulder pain TECHNIQUE: 3 views of the shoulder were acquired. COMPARISON: None. FINDINGS: Bones: No fractures or dislocations. No suspicious bony lesions. Mild to moderate acromioclavicular joint osteoarthritic changes are seen. Mild glenohumeral joint osteoarthritic changes also noted. Visualized ribs appear intact. Soft tissues: Multiple calcifications are seen adjacent to greater tuberosity of humeral head and anterior aspect of inferior glenohumeral joint. 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 No fracture or dislocation. Small calcifications adjacent to greater tuberosity of the humeral head which may represent calcific tendinitis. Small calcifications in anterior inferior aspect of glenohumeral joint and may represent loose bodies. Dictated by: Bert Ko M.D. on 08/10/2021 at 15:37 Approved by: Bert Ko M.D. on 08/10/2021 at 15:38
== END ==
PROVIDERS: PCP Family Medicine; Referring Provider Acupuncturist; Visit Provider Acupuncturist
DX: M25.511 Pain in right shoulder (principal); M19.011 Primary osteoarthritis, right shoulder
CPT/HCPCS: 73030

== ENCOUNTER 2023-05-31 09:53 | Emergency (ER) | payer OTHER, SELFPAY ==
[2020-11-12 10:59] VITALS: BMI 38.6
[2023-05-31 10:05] VITALS: BP 138/68; PULSE 109; RESP 14; TEMP 36.6; O2SAT 99; BMI 38.5
[2023-05-31 10:11] VITALS: PULSE 98; RESP 16
--- NOTE | 2023-05-31 10:16 | DI.RAD.S_ITS ---
PROCEDURE: XR SHOULDER LT MIN 2V INDICATIONS: left shoulder pain TECHNIQUE: 3 views of the shoulder were acquired. COMPARISON: [facility] [place], MR, MR SHOULDER LEFT WITHOUT CONTRAST, 02/09/2021, 14:46. [facility] [place], CR, XR SHOULDER 2+ VIEWS LEFT, 12/20/2021, 16:07. FINDINGS: Bones: No fractures or dislocations. Postsurgical changes with a surgical anchor in the humeral head. No suspicious bony lesions. Mild acromioclavicular and glenohumeral joint degeneration Visualized ribs appear intact. Soft tissues: Calcification over the humeral head suggesting rotator cuff calcific tendinitis. IMPRESSION: 1. Postsurgical changes. 2. Mild degenerative joint disease. 3. Rotator cuff calcific tendinitis. Dictated by: Geovanni Jones M.D. on 05/31/2023 at 10:45 Approved by: Geovanni Jones M.D. on 05/31/2023 at 10:47
--- NOTE | 2023-05-31 11:06 | ED.UPPEXIN ---
HPI - Extremity Injury (Upper) <Kemar Mccord PA-C - Last Filed: 05/31/23 16:49> General Chief Complaint: Extremity Injury, Upper Stated Complaint: L shoulder pain, hx shoulder surgery Time Seen by Provider: 05/31/23 11:04 Source: patient Mode of arrival: Ambulatory History of Present Illness HPI narrative: This is a 47-year-old female presents emergency department due to Left shoulder pain after intercourse. Patient states that she was holding her arms outstretched in a push-up position patient has a dresser. She reports pain to the lateral aspect of her left shoulder. Some radiation down the lateral aspect of her arm. Denies any numbness in the distal extremities. Pain worsens with motion. Has taken gabapentin, Tylenol, meloxicam, Flexeril. She had a shot of Toradol and a sling. Is also taking oxycodone and hydroxyzine. Related Data Home Medications Medication Instructions Recorded Confirmed cyclobenzaprine 10 mg tablet 10 mg PO TID PRN Muscle Spasm ##0 09/27/11 11/12/20 citalopram 40 mg tablet 20 mg PO SEE INSTRUCTIONS ##0 05/21/12 11/12/20 lovastatin 40 mg tablet 40 mg PO QPM ##0 05/21/12 11/12/20 acetaminophen 650 mg 1,300 mg PO BID 11/26/18 11/12/20 tablet,extended release (Tylenol Arthritis Pain) amlodipine 5 mg tablet 5 mg PO DAILY 11/26/18 11/12/20 bupropion HCl 150 mg tablet,12 hr 150 mg PO BID 11/26/18 11/12/20 sustained-release (Wellbutrin SR) cetirizine 10 mg capsule (Zyrtec) 10 mg PO DAILY 11/26/18 11/12/20 gabapentin 300 mg capsule 600 mg PO BEDTIME 11/26/18 11/12/20 meloxicam 7.5 mg tablet 7.5 mg PO BID 11/26/18 11/12/20 prazosin 2 mg capsule 4 mg PO BEDTIME 11/26/18 11/12/20 famotidine 20 mg tablet 20 mg PO BID 11/03/20 11/12/20 fluticasone propionate 50 2 spray intranasal DAILY 11/03/20 11/12/20 mcg/actuation nasal spray,suspension (Flonase Allergy Relief) sumatriptan succinate 25 mg tablet 25 mg PO Q2-4H PRN Migraines 11/03/20 11/12/20 Previous Rx's Medication Instructions Recorded docusate sodium 100 mg capsule 100 mg PO BID PRN constipation #30 11/13/20 (DOK) caps hydroxyzine pamoate 25 mg capsule 25 mg PO Q4HR PRN itching #20 caps 11/13/20 oxycodone 5 mg tablet See Rx Instructions .Route 11/13/20 .COMPLEX PRN Pain, Moderate (4-6) #30 tabs lidocaine 4 % topical patch 1 patch topical BID PRN pain #10 ea 05/31/23 Allergies Allergy/AdvReac Type Severity Reaction Status Date / Time codeine [CODEINE] Allergy Severe I stop Verified 05/31/23 10:10 breathing diphenhydramine Allergy Severe Hives Verified 05/31/23 10:10 [DIPHENHYDRAMINE] Penicillins [PENICILLINS] Allergy Severe Rash Verified 05/31/23 10:10 latex [LATEX] Allergy Mild ITCHING Verified 05/31/23 10:10 doxepin [DOXEPIN] Allergy Unknown Pt does Verified 05/31/23 10:10 not remember reaction morphine [MORPHINE] Allergy Unknown Problems Verified 05/31/23 10:10 breathing hydrocodone [From Vicodin] AdvReac Vomiting Verified 05/31/23 10:10 Review of Systems <Kemar Mccord PA-C - Last Filed: 05/31/23 16:49> Review of Systems Narrative: GENERAL: Denies chills, fatigue, malaise, fever, sweats. HEENT: Denies sinus pain, ear pain, sore throat, difficulty swallowing, dizziness. MUSCULOSKELETAL: Reports left shoulder pain SKIN: Denies rash, skin lesions, or other NEUROLOGIC: Denies weakness, headache, numbness, change in speech, confusion, seizures, incoordination. PSYCHIATRIC: No concerning psychosocial issues. 12 point review of systems is negative except for those stated above Patient History <Kemar Mccord PA-C - Last Filed: 05/31/23 16:49> Medical History (Updated 05/31/23 @ 11:24 by Kemar Mccord PA-C) Anemia Arthritis MARIBEL III (cervical intraepithelial neoplasia III) Constipation Depression Easy bruisability GERD (gastroesophageal reflux disease) HLD (hyperlipidemia) Kidney injury Nightmares associated with chronic post-traumatic stress disorder Pneumonia PTSD (post-traumatic stress disorder) Surgical History (Updated 11/03/20 @ 13:14 by Chantal Galeas RN) History of arthroscopy of both knees Hx of appendectomy Hx of laparoscopy Status post loop electrosurgical excision procedure (LEEP) of cervix Social History household members: spouse and children Smoking Status: Former smoker alcohol intake: current Smoking Status: Former smoker alcohol intake frequency: holidays/special occasions only Substance Use Type: does not use and other Exam <Kemar Mccord PA-C - Last Filed: 05/31/23 16:49> Narrative Exam Narrative: GENERAL: Well-developed patient, in mild distress. HEAD: Atraumatic. Normocephalic. EYES: Pupils equal round and reactive. Extraocular motions intact. No scleral icterus. No injection or drainage. ENT: Nose without bleeding, purulent drainage. Throat without erythema, tonsillar hypertrophy or exudate. Airway patent. NECK: Trachea midline. Non tender EXTREMITIES: Moderate tenderness to palpation to the lateral aspect of the left shoulder. Pain with range of motion. Distally neurovascularly intact. No obvious deformities noted. BACK: Nontender without deformity or crepitance. No flank tenderness. NEURO: AOx3. SKIN: No rash or erythema of visible areas Initial Vital Signs Initial Vital Signs: Vital Signs Temperature 97.8 F 05/31/23 10:05 Pulse Rate 109 H 05/31/23 10:05 Respiratory Rate 14 05/31/23 10:05 Blood Pressure 138/68 05/31/23 10:05 Pulse Oximetry 99 05/31/23 10:05 Oxygen Delivery Method Room Air 05/31/23 10:05 <Candida Coppola DO - Last Filed: 05/31/23 19:22> Initial Vital Signs Initial Vital Signs: Vital Signs Temperature 97.8 F 05/31/23 10:05 Pulse Rate 109 H 05/31/23 10:05 Respiratory Rate 14 05/31/23 10:05 Blood Pressure 138/68 05/31/23 10:05 Pulse Oximetry 99 05/31/23 10:05 Oxygen Delivery Method Room Air 05/31/23 10:05 Course <BLANCA Walker Last Filed: 05/31/23 16:49> Orders Ordered: ED Orders 05/31/23 10:16 XR shoulder LT min 2V Stat Vital Signs Vital signs: Vital Signs - 8 hr 05/31/23 11:30 Pulse Rate 88 <Candida Coppola DO - Last Filed: 05/31/23 19:22> Orders Ordered: ED Orders 05/31/23 10:16 XR shoulder LT min 2V Stat Vital Signs Vital signs: Vital Signs - 8 hr 05/31/23 11:30 Pulse Rate 88 MDM - Extremity Injury (Upper) <Kemar Mccord PA-C - Last Filed: 05/31/23 16:49> Imaging Data Extremity x-ray #1: Radiologist's Impression: Close Shoulder X-Ray (Signed) Geovanni Jones - 05/31/23 [place] [address] XRay Report Signed Patient: Abigail Marroquin MR#: [id number] : 1975 Acct:[id number] Age/Sex: 47 / F Date of Service: 05/31/23 Loc: ED Accession Number: [id number] ?? Procedure: XR shoulder LT min 2V Ordering Provider: Candida Coppola D.O. PROCEDURE:? XR SHOULDER LT MIN 2V ? INDICATIONS:? left shoulder pain ? TECHNIQUE:? 3 views of the shoulder were acquired.? ? [facility] 14:46.? [facility], CR, XR SHOULDER 2+ VIEWS LEFT, 12/20/2021, 16:07. ? FINDINGS:? ? Bones:? No fractures or dislocations.? Postsurgical changes with a surgical anchor in the humeral head.? No suspicious bony lesions.? Mild acromioclavicular and glenohumeral joint degeneration Visualized ribs appear intact.? ? Soft tissues:? Calcification over the humeral head suggesting rotator cuff calcific tendinitis.? ? IMPRESSION:? ? 1. Postsurgical changes.? 2. Mild degenerative joint disease.? 3. Rotator cuff calcific tendinitis.? ? ? Dictated by: Geovanni Jones M.D. on 05/31/2023 at 10:45 ? ? Approved by: Geovanni Jones M.D. on 05/31/2023 at 10:47 ? MDM Narrative Medical decision making narrative: MDM * differential diagnosis includes but not limited to shoulder sprain, fracture of humerus, fractured clavicle, AC joint separation, soft tissue injury * Prior records reviewed: Patient has not been here for similar complaints in the past. * My lab interpretation: None obtained * My imgaing interpretation: X-ray showed no acute fractures. Did show findings of mild degenerative joint disease as well as rotator cuff tendonitis which may be contributing to the patient's pain. * Clinical Decision Rules/Scores evaluated: None * Independent discussions with: None ED Course: This is a 47-year-old female presents to the emergency department due to suspected strain of the left shoulder. X-ray shows no acute changes. This suggests chronic degenerative do not joint disease and rotator cuff tendinitis which maybe contributing to the pain. Patient already has been taking Tylenol, meloxicam, Flexeril, gabapentin, and oxycodone. We will prescribe lidocaine patches as well to help with the patient's pain. Recommended she follow up with her established orthopedic surgeon as well as primary care provider for possible further imaging and management. No emergent findings at this time. Also advised patient to use sling that she currently has. Shared Decision Making: Discussed plan with patient who is comfortable with the plan. Social Considerations: None Disposition: Discharged to home Discharge Plan Departure Patient Disposition: Home Clinical Impression: Left shoulder strain Instructions: DI for Shoulder Sprain Activity Restrictions/Additional Instructions: Thank you for coming to the [facility] Emergency Department today. As we discussed your x-ray shows no evidence of any kind of acute fractures or other bony changes. It did show mild degenerative joint disease and tendinitis which may be contributing to your pain. You may continue using the medications you are currently using. The lidocaine patches should help as well. Please follow up with the orthopedic surgeon as well as primary care provider for further evaluation and management. I sent your medication to [facility] in [place]. I hope you feel better soon. Prescriptions: New lidocaine 4 % adhesive patch,medicated 1 patch topical BID PRN (Reason: pain) Qty: 10 0RF No Action cyclobenzaprine 10 MG tablet 10 mg PO TID PRN (Reason: Muscle Spasm) Qty: 0 citalopram 40 MG tablet 20 mg PO SEE INSTRUCTIONS Qty: 0 Rx Instructions: Takes at night lovastatin 40 mg Tablet 40 mg PO QPM Qty: 0 cetirizine [Zyrtec] 10 mg capsule 10 mg PO DAILY meloxicam 7.5 mg tablet 7.5 mg PO BID amlodipine 5 mg tablet 5 mg PO DAILY bupropion HCl [Wellbutrin SR] 150 mg tablet sustained-release 12 hr 150 mg PO BID gabapentin 300 mg capsule 600 mg PO BEDTIME prazosin 2 mg capsule 4 mg PO BEDTIME acetaminophen [Tylenol Arthritis Pain] 650 mg tablet extended release 1,300 mg PO BID sumatriptan succinate 25 mg Tablet 25 mg PO Q2-4H PRN (Reason: Migraines) famotidine 20 mg Tablet 20 mg PO BID fluticasone propionate [Flonase Allergy Relief] 50 mcg/actuation [place],Suspension 2 spray INTRANASAL DAILY docusate sodium [DOK] 100 mg Capsule 100 mg PO BID PRN (Reason: constipation) Qty: 30 0RF hydroxyzine pamoate 25 mg Capsule 25 mg PO Q4HR PRN (Reason: itching) Qty: 20 0RF oxycodone 5 mg Tablet See Rx Instructions .ROUTE .COMPLEX PRN (Reason: Pain, Moderate (4-6)) Qty: 30 0RF Rx Instructions: 1-2 p.o. Q 3 hours as needed severe pain Referrals: Gisel Ching PA-C [Primary Care Provider] - Stand Alone Forms: Patient Portal/API <Candida Coppola DO - Last Filed: 05/31/23 19:22> Cosign ED Attending Fadi Attestation: I was immediately available in the department for consultation. Documentation has been reviewed.
[2023-05-31 11:30] VITALS: PULSE 88
== END 2023-05-31 11:30 | disposition home or self-care (01) ==
PROVIDERS: Emergency Provider Physician Assistant Medical; PCP Physician Assistant
DX: S46.912A Strain of unspecified muscle, fascia and tendon at shoulder and upper arm level, left arm, initial encounter (principal); X58.XXXA Exposure to other specified factors, initial encounter
CPT/HCPCS: 73030; 99281; 99283

== ENCOUNTER → 2023-06-06 18:52 | Outpatient (CLI) | payer OTHER, SELFPAY ==
[2020-11-12 10:59] VITALS: BMI 38.6
--- NOTE | 2023-06-06 | DI.MRI.S_ITS ---
PROCEDURE: MR SHOULDER LT WO CON INDICATIONS: pain lt shoulder TECHNIQUE: Noncontrast oblique coronal T2 fast spin echo with fat saturation, oblique sagittal T1 spin echo and T2 fast spin echo with fat saturation, axial T1 spin echo and T2 fast spin echo with fat saturation through the shoulder. COMPARISON: [facility], MR, MR SHOULDER LEFT WITHOUT CONTRAST, 02/09/2021, 14:46. [facility], CR, XR SHOULDER LT MIN 2V, 05/31/2023, 10:12. FINDINGS: Image quality: Excellent. Rotator cuff: Postsurgical changes are seen from prior rotator cuff tendon repair with an intact surgical construct. The teres minor and subscapularis tendons are intact. There is no significant rotator cuff muscle atrophy. Bones and bursae: Surgical anchor is seen in the greater tuberosity. There is heterogeneous [id number] signal within the proximal humeral metaphysis extending into the humeral shaft. Serpiginous curvilinear hyperintense signal is seen within the medullary cavity. Overlying cortex is intact. Findings are new when compared to the MRI from 02/09/2021. No glenohumeral cartilage defect. Suspected postsurgical changes at the acromioclavicular joint with superimposed degenerative changes. No recurrent narrowing of the supraspinatus outlet.. A small amount of fluid is seen in the subacromial/subdeltoid bursa, which is expected in the postsurgical setting. No significant glenohumeral effusion. Capsule and soft tissues: No displaced labral tear. The proximal biceps long head tendon is intact. There is partial effacement of the fat in the rotator interval. Glenohumeral ligaments appear to be intact. IMPRESSION: 1. Postsurgical changes from rotator cuff tendon repair with an intact surgical construct. 2. Heterogeneous signal intensity within the proximal humeral shaft and metaphysis is new when compared to the MRI from 02/09/2021 and is suspicious for bone infarct. 3. Suspected postsurgical changes at the acromioclavicular joint and superimposed osteoarthrosis. No recurrent narrowing of the supraspinatus outlet. 4. Small amount of fluid in the subacromial/subdeltoid bursa is expected in the postsurgical setting. Approved by: Dominic Harmon M.D. on 06/07/2023 at 10:17
== END ==
PROVIDERS: PCP Physician Assistant; Referring Provider Physician Assistant; Visit Provider Physician Assistant
DX: M25.512 Pain in left shoulder (principal); M19.012 Primary osteoarthritis, left shoulder
CPT/HCPCS: 73221

== ENCOUNTER 2024-03-11 19:09 | Emergency (ER) | payer OTHER, SELFPAY ==
[2020-11-12 10:59] VITALS: BMI 38.6
--- NOTE | 2024-03-11 19:12 | DI.CT.S_ITS ---
PROCEDURE: CT ABDOMEN PELVIS W CON INDICATIONS: eval for obstruction TECHNIQUE: After the administration of intravenous contrast, axial sections acquired from the lung bases to the pubic symphysis. Coronal and sagittal reformats were performed. For radiation dose reduction, the following was used: automated exposure control, adjustment of mA and/or kV according to patient size. COMPARISON: None. FINDINGS: Image quality: Diagnostic. Lower Chest: Minimal pericardial effusion. ABDOMEN: Liver: No solid mass. Steatosis. 6 mm hepatic simple cyst. Gallbladder: No radiopaque gallstones or wall thickening. Biliary ducts: No biliary dilation. Pancreas: No ductal dilation. Spleen: Size is within normal limits. Adrenal Glands: No adrenal nodules. Kidneys and Ureters: No hydronephrosis. No solid mass. No complex renal cystic lesion which requires follow up. Stomach and Bowel: Normal colonic caliber, without significant wall thickening. No obstruction. Mild scattered stool. Peritoneum: No abnormal intraperitoneal fluid. No free air. Ventral Wall: No significant ventral hernia. Abdominal Nodes: No retroperitoneal or mesenteric adenopathy by size criteria. Vessels: Aorta and inferior vena cava are normal in size. PELVIS: Pelvic Organs: Unremarkable. Bladder: No bladder wall thickening, accounting for underdistention. Pelvic Nodes: No enlarged lymph nodes. Miscellaneous: No inguinal hernias are seen. Bones: No aggressive osseous abnormality. IMPRESSION: No visualized obstruction. Mild scattered stool. Dictated by: Alya Deal M.D. on 03/11/2024 at 20:34 Approved by: Ayla Deal M.D. on 03/11/2024 at 20:36
[2024-03-11 19:19] VITALS: BP 157/79; PULSE 98; RESP 18; TEMP 36.3; O2SAT 100; BMI 39.9
[2024-03-11 19:45] LABS: Add Manual Diff / Slide Review NO; Basophils Absolute Auto 100 /uL (0-100); Eosinophils Absolute Auto 100 /uL (0-450); Eosinophils Percent Auto 0.9 % (2-4); Hematocrit 40.1 % (36-46); Hemoglobin 13.6 g/dL (12.0-16.0); Lymphocytes Absolute Auto 2900 /uL (1100-4500); Lymphocytes Percent Auto 36.7 % (25-40); Mean Corpuscular HGB Conc 33.9 % (30-36); Mean Corpuscular Hemoglobin 28.5 PG (26-34); Mean Corpuscular Volume 84.2 fL (80-100); Monocytes Absolute Auto 700 /uL (0-900); Monocytes Percent Auto 8.6 % (3-14); Neutrophils Absolute Auto 4200 /uL (1500-7000); Neutrophils Percent Auto 52.8 % (50-75); Platelet Count 292 X10^3/uL (150-400); Red Blood Cell Count 4.76 X10^6/uL (4.0-5.2); White Blood Cell Count 7.9 X10^3/uL (4.5-11.0)
[2024-03-11 20:03] LABS: Alanine Aminotransferase 20 IU/L (<35); Albumin Globulin Ratio 1.5 (1.0-2.8); Alkaline Phosphatase 78 U/L (38-126); Aspartate Aminotransferase 19 IU/L (14-36); BUN Creatinine Ratio 15.9 (6-22); Bilirubin Total 0.7 mg/dL (0.2-1.3); Blood Urea Nitrogen 13 mg/dL (7-17); Carbon Dioxide 24 mmol/L (22-32); Chloride 106 mmol/L (98-107); Estimated Glomerular Filt Rate > 60 mL/min (>60); Globulin 3.4 g/dL (1.7-4.1); Glucose 96 mg/dL (70-100); HEMOLYSIS < 15 (0-50); Lipase 46 U/L (23-300); Potassium 3.3 mmol/L (3.4-5.1); Sodium 139 mmol/L (137-145); Total Protein 8.4 g/dL (6.3-8.2)
[2024-03-11] MEDS: ONDANSETRON 4 MG/2 ML INJ IV (20:07)
[2024-03-11] MEDS: KETOROLAC 30 MG/ML VIAL IV (20:10)
[2024-03-11] MEDS: SODIUM CHLORIDE 0.9% 1,000 ML 1000 ML IV (20:10)
[2024-03-11 20:20] VITALS: BP 115/72; PULSE 80; O2SAT 98
[2024-03-11 20:30] VITALS: BP 122/74; PULSE 80; O2SAT 97
[2024-03-11 21:04] VITALS: PULSE 94; O2SAT 95
[2024-03-11 21:05] VITALS: BP 142/63; PULSE 94; O2SAT 95
--- NOTE | 2024-03-11 21:23 | ED.GENADULT ---
HPI - General Adult General Chief complaint: Abdominal Pain Stated complaint: Bowel impaction? IBS patient Time Seen by Provider: 03/11/24 19:12 Source: patient Mode of arrival: Ambulatory History of Present Illness HPI narrative: 48-year-old female who is here for evaluation of upper abdominal discomfort. She states she does have history of IBS. Has had a colonoscopy within the past couple years and was told that everything is unremarkable. She stated that earlier she did pass a hard stool normally this is followed by some periods of time of loose stools however this is not happened particularly during this time. She denies any vomiting but having some nausea. No urinary symptoms. She has taken Dulcolax without improvement. Until the walk-in clinic sent her to the emergency department for evaluation Related Data Home Medications Medication Instructions Recorded Confirmed cyclobenzaprine 10 mg tablet 10 mg PO TID PRN Muscle Spasm ##0 09/27/11 11/12/20 citalopram 40 mg tablet 20 mg PO SEE INSTRUCTIONS ##0 05/21/12 11/12/20 lovastatin 40 mg tablet 40 mg PO QPM ##0 05/21/12 11/12/20 acetaminophen 650 mg 1,300 mg PO BID 11/26/18 11/12/20 tablet,extended release (Tylenol Arthritis Pain) amlodipine 5 mg tablet 5 mg PO DAILY 11/26/18 11/12/20 bupropion HCl 150 mg tablet,12 hr 150 mg PO BID 11/26/18 11/12/20 sustained-release (Wellbutrin SR) cetirizine 10 mg capsule (Zyrtec) 10 mg PO DAILY 11/26/18 11/12/20 gabapentin 300 mg capsule 600 mg PO BEDTIME 11/26/18 11/12/20 meloxicam 7.5 mg tablet 7.5 mg PO BID 11/26/18 11/12/20 prazosin 2 mg capsule 4 mg PO BEDTIME 11/26/18 11/12/20 famotidine 20 mg tablet 20 mg PO BID 11/03/20 11/12/20 fluticasone propionate 50 2 spray intranasal DAILY 11/03/20 11/12/20 mcg/actuation nasal spray,suspension (Flonase Allergy Relief) sumatriptan succinate 25 mg tablet 25 mg PO Q2-4H PRN Migraines 11/03/20 11/12/20 Previous Rx's Medication Instructions Recorded docusate sodium 100 mg capsule 100 mg PO BID PRN constipation #30 11/13/20 (DOK) caps hydroxyzine pamoate 25 mg capsule 25 mg PO Q4HR PRN itching #20 caps 11/13/20 oxycodone 5 mg tablet See Rx Instructions .Route 11/13/20 .COMPLEX PRN Pain, Moderate (4-6) #30 tabs lidocaine 4 % topical patch 1 patch topical BID PRN pain #10 ea 05/31/23 Allergies Allergy/AdvReac Type Severity Reaction Status Date / Time codeine [CODEINE] Allergy Severe I stop Verified 03/11/24 20:07 breathing diphenhydramine Allergy Severe Hives Verified 03/11/24 20:07 [DIPHENHYDRAMINE] Penicillins [PENICILLINS] Allergy Severe Rash Verified 03/11/24 20:07 latex [LATEX] Allergy Mild ITCHING Verified 03/11/24 20:07 doxepin [DOXEPIN] Allergy Unknown Pt does Verified 03/11/24 20:07 not remember reaction morphine [MORPHINE] Allergy Unknown Problems Verified 03/11/24 20:07 breathing hydrocodone [From Vicodin] AdvReac Vomiting Verified 03/11/24 20:07 Review of Systems Review of Systems Narrative: See HPI Patient History Medical History Depression Anemia Easy bruisability Arthritis Kidney injury MARIBEL III (cervical intraepithelial neoplasia III) Constipation Pneumonia GERD (gastroesophageal reflux disease) PTSD (post-traumatic stress disorder) HLD (hyperlipidemia) Nightmares associated with chronic post-traumatic stress disorder Surgical History (Updated 11/03/20 @ 13:14 by Chantal Galeas RN) Hx of laparoscopy Hx of appendectomy History of arthroscopy of both knees Status post loop electrosurgical excision procedure (LEEP) of cervix Social History household members: spouse and children Smoking Status: Former smoker alcohol intake: current Smoking Status: Former smoker alcohol intake frequency: holidays/special occasions only Substance Use Type: does not use and other Exam Initial Vital Signs Initial Vital Signs: Vital Signs Temperature 97.3 F L 03/11/24 19:19 Pulse Rate 98 H 03/11/24 19:19 Respiratory Rate 18 03/11/24 19:19 Blood Pressure 157/79 H 03/11/24 19:19 Pulse Oximetry 100 03/11/24 19:19 Oxygen Delivery Method Room Air 03/11/24 19:19 Const General: cooperative and No ill appearing HENGA Head: normal to inspection and normocephalic Resp Effort & Inspection: normal respiratory effort Auscultation: clear to auscultation bilaterally Cardio Rate: regular rate Rhythm: regular rhythm GI Inspection: normal to inspection and non-distended Palpation: soft and tender (Upper abdomen) Skin General: no rashes or lesions noted Extrem General: normal to inspection and capillary refill normal Course Orders Ordered: ED Orders 03/11/24 19:12 CT abdomen pelvis w con Stat 03/11/24 19:30 Complete Blood Count AUTO DIFF Stat Comprehensive Metabolic Panel Stat Lipase Stat Discontinued Medications Sodium Chloride (Normal Saline 0.9%) 1,000 mls @ 1,000 mls/hr IV BOLUS ONE Stop: 03/11/24 20:11 Last Infusion: 03/11/24 21:02 Dose: Infused Documented By: Admin: 03/11/24 20:10 Dose: 1,000 mls/hr Documented By: JAI Ketorolac Tromethamine (Ketorolac 30 Mg/Ml Vial) 30 mg IV NOW ONE Stop: 03/11/24 20:00 Last Admin: 03/11/24 20:10 Dose: 30 mg Documented By: JAI Ondansetron HCl (Ondansetron 4 Mg/2 Ml Inj) 4 mg IV NOW ONE Stop: 03/11/24 20:00 Last Admin: 03/11/24 20:07 Dose: 4 mg Documented By: JAI Ondansetron HCl (Ondansetron 4 Mg Odt Prepack) 1 bottle MISC DIRECTED ONE Stop: 03/11/24 21:24 Last Admin: 03/11/24 21:29 Dose: 1 bottle Documented By: JASON Sodium Chloride (Sodium Chloride 0.9% Flush) 10 ml IV BID LISA Sodium Chloride (Sodium Chloride 0.9% Flush) 10 ml IV PRN PRN PRN Reason: Flush Vital Signs Vital signs: Vital Signs - 8 hr 03/11/24 19:19 03/11/24 20:20 03/11/24 20:20 Temperature 97.3 F L Pulse Rate 98 H 80 Respiratory Rate 18 Blood Pressure 157/79 H 115/72 Pulse Oximetry 100 98 Oxygen Delivery Method Room Air 03/11/24 20:30 03/11/24 20:30 03/11/24 21:04 Temperature Pulse Rate 80 94 H Respiratory Rate Blood Pressure 122/74 Pulse Oximetry 97 95 Oxygen Delivery Method 03/11/24 21:05 03/11/24 21:05 Temperature Pulse Rate 94 H Respiratory Rate Blood Pressure 142/63 H Pulse Oximetry 95 Oxygen Delivery Method Room Air Medical Decision Making Lab Data Lab results reviewed: Yes I reviewed the patient's lab results. 03/11/24 19:30 03/11/24 19:30 Labs: Lab Results 03/11/24 Range/Units 19:30 WBC 7.9 (4.5-11.0) X10^3/uL RBC 4.76 (4.0-5.2) X10^6/uL Hgb 13.6 (12.0-16.0) g/dL Hct 40.1 (36-46) % MCV 84.2 (80-100) fL MCH 28.5 (26-34) PG MCHC 33.9 (30-36) % RDW 14.0 (11.6-14.8) % Plt Count 292 (150-400) X10^3/uL Neut % (Auto) 52.8 (50-75) % Lymph % (Auto) 36.7 (25-40) % [place] % (Auto) 8.6 (3-14) % Eos % (Auto) 0.9 L (2-4) % Baso % (Auto) 1.0 (0-2) % Neut # (Auto) 4200 (8172-7868) /uL Lymph # (Auto) 2900 (8076-8861) /uL [place] # (Auto) 700 (0-900) /uL Eos # (Auto) 100 (0-450) /uL Baso # (Auto) 100 (0-100) /uL Sodium 139 (137-145) mmol/L Potassium 3.3 L (3.4-5.1) mmol/L Chloride 106 (98-107) mmol/L Carbon Dioxide 24 (22-32) mmol/L BUN 13 (7-17) mg/dL Creatinine 0.82 (0.52-1.04) mg/dL Estimated GFR > 60 (>60) mL/min BUN/Creatinine Ratio 15.9 (6-22) Glucose 96 (70-100) mg/dL Calcium 10.0 (8.4-10.2) mg/dL Total Bilirubin 0.7 (0.2-1.3) mg/dL AST 19 (14-36) IU/L ALT 20 (<35) IU/L Alkaline Phosphatase 78 (38-126) U/L Total Protein 8.4 H (6.3-8.2) g/dL Albumin 5.0 (3.5-5.0) g/dL Globulin 3.4 (1.7-4.1) g/dL Albumin/Globulin Ratio 1.5 (1.0-2.8) Lipase 46 (23-300) U/L Imaging Data CT scan - abdomen/pelvis: Radiologist's Impression: PROCEDURE: CT ABDOMEN PELVIS W CON INDICATIONS: eval for obstruction TECHNIQUE: After the administration of intravenous contrast, axial sections acquired from the lung bases to the pubic symphysis. Coronal and sagittal reformats were performed. For radiation dose reduction, the following was used: automated exposure control, adjustment of mA and/or kV according to patient size. COMPARISON: None. FINDINGS: Image quality: Diagnostic. Lower Chest: Minimal pericardial effusion. ABDOMEN: Liver: No solid mass. Steatosis. 6 mm hepatic simple cyst. Gallbladder: No radiopaque gallstones or wall thickening. Biliary ducts: No biliary dilation. Pancreas: No ductal dilation. Spleen: Size is within normal limits. Adrenal Glands: No adrenal nodules. Kidneys and Ureters: No hydronephrosis. No solid mass. No complex renal cystic lesion which requires follow up. Stomach and Bowel: Normal colonic caliber, without significant wall thickening. No obstruction. Mild scattered stool. Peritoneum: No abnormal intraperitoneal fluid. No free air. Ventral Wall: No significant ventral hernia. Abdominal Nodes: No retroperitoneal or mesenteric adenopathy by size criteria. Vessels: Aorta and inferior vena cava are normal in size. PELVIS: Pelvic Organs: Unremarkable. Bladder: No bladder wall thickening, accounting for underdistention. Pelvic Nodes: No enlarged lymph nodes. Miscellaneous: No inguinal hernias are seen. Bones: No aggressive osseous abnormality. IMPRESSION: No visualized obstruction. Mild scattered stool. MDM Narrative Medical decision making narrative: Labs are unremarkable. Vital signs unremarkable. CT scan shows no acute pathology. LFTs unremarkable. Lipase unremarkable. Normal gallbladder on the CT scan. She was recently had a colonoscopy without signs of Crohn's disease or ulcerative colitis. This could potentially be irritable male. I did discuss this with the patient. We discussed the use of laxatives at home. Recommended that she talk with the primary doctor about a follow-up to see gastroenterology. Will discharge home with nausea medicine and instructions to use Tylenol and ibuprofen for discomfort. Discharge Plan Departure Patient Disposition: Home Clinical Impression: Abdominal pain Instructions: DI for Abdominal Pain-Adult Activity Restrictions/Additional Instructions: I do recommend that you eat a bland diet and increase the amount of laxatives that you were taking like we discussed. He was the nausea medication as needed. Return to the emergency department for new symptoms. Contact your primary doctor for a follow-up. Prescriptions: No Action cyclobenzaprine 10 MG tablet 10 mg PO TID PRN (Reason: Muscle Spasm) Qty: 0 citalopram 40 MG tablet 20 mg PO SEE INSTRUCTIONS Qty: 0 Rx Instructions: Takes at night lovastatin 40 mg Tablet 40 mg PO QPM Qty: 0 cetirizine [Zyrtec] 10 mg capsule 10 mg PO DAILY meloxicam 7.5 mg tablet 7.5 mg PO BID amlodipine 5 mg tablet 5 mg PO DAILY bupropion HCl [Wellbutrin SR] 150 mg tablet sustained-release 12 hr 150 mg PO BID gabapentin 300 mg capsule 600 mg PO BEDTIME prazosin 2 mg capsule 4 mg PO BEDTIME acetaminophen [Tylenol Arthritis Pain] 650 mg tablet extended release 1,300 mg PO BID sumatriptan succinate 25 mg Tablet 25 mg PO Q2-4H PRN (Reason: Migraines) famotidine 20 mg Tablet 20 mg PO BID fluticasone propionate [Flonase Allergy Relief] 50 mcg/actuation [place],Suspension 2 spray INTRANASAL DAILY docusate sodium [DOK] 100 mg Capsule 100 mg PO BID PRN (Reason: constipation) Qty: 30 0RF hydroxyzine pamoate 25 mg Capsule 25 mg PO Q4HR PRN (Reason: itching) Qty: 20 0RF oxycodone 5 mg Tablet See Rx Instructions .ROUTE .COMPLEX PRN (Reason: Pain, Moderate (4-6)) Qty: 30 0RF Rx Instructions: 1-2 p.o. Q 3 hours as needed severe pain lidocaine 4 % adhesive patch,medicated 1 patch topical BID PRN (Reason: pain) Qty: 10 0RF Referrals: Gisel Ching PA-C [Primary Care Provider] - Stand Alone Forms: Patient Portal/API
[2024-03-11] MEDS: ONDANSETRON 4 MG ODT PREPACK 1 BOTTLE MISC (21:29)
== END 2024-03-11 21:31 | disposition home or self-care (01) ==
PROVIDERS: Emergency Provider Emergency Medicine; PCP Physician Assistant
DX: R10.10 Upper abdominal pain, unspecified (principal); R11.0 Nausea; Z79.899 Other long term (current) drug therapy
CPT/HCPCS: 36415; 74177; 80053; 83690; 85025; 96361; 96374; 96375; 99284; J1885; J2405; Q9967

== ENCOUNTER → 2024-11-04 12:50 | Outpatient (CLI) | payer OTHER, SELFPAY ==
[2020-11-12 10:59] VITALS: BMI 38.6
--- NOTE | 2024-11-04 | DI.ECHO.S_ITS ---
[facility]+ [facility] : : [id number] : : [place] : : [id number] : : Phone: [phone] Echocardiogram Report + + :Name: DIONY SHETH Study Date: 11/04/2024 Height: 67 in : :[facility] ReadingLocation: Weight: 250 lb : : Gender: Female BSA: 2.2 m2 : :: 1975 Age: 48 yrs BP: 120/93 mmHg: :Reason For Study: Pericardial Effusion : :Ordering Physician: MADELEINE, : :SUSAN Performed By: Kelsea Urbina : :Referring: SUSAN SALVADOR : + + Interpretation Summary The ejection fraction is estimated to be 60-65%. The right ventricle is normal in size and function. There is a trivial pericardial effusion noted. Procedure: Images were not obtained from all of the standard acoustic windows due to the limited scope of the study. The study quality was technically difficult. Comparison is made with the echocardiogram of 07/17/2024 at [facility].. Left Ventricle: The left ventricle is normal in size and wall thickness. The ejection fraction is estimated to be 60-65%. Right Ventricle: The right ventricle is normal in size and function. Atria: Both atria are normal in size. Mitral Valve: The mitral valve is normal. Aortic Valve: The aortic valve opens well. The aortic valve is slightly calcified. Tricuspid Valve: The tricuspid valve is not well visualized. Great Vessels: The IVC is of normal diameter and collapses greater than 50% with a sniff. This suggests a low right atrial pressure of 3 mm Hg. Pericardium/ Pleura There is a trivial pericardial effusion noted. There is no pleural effusion. MMode/2D Measurements & Calculations LVIDd: 4.6 cm IVC diam: 1.2 cm LVIDs: 3.3 cm FS: 28.7 % IVSd: 0.72 cm LVPWd: 0.84 cm LV adam. diameter/BSA (cm/m^2): 2.1 LV sys. diameter/BSA (cm/m^2): 1.5 Reading Physician:01:28 PM
== END ==
PROVIDERS: PCP Physician Assistant; Referring Provider Internal Medicine Cardiovascular Disease; Visit Provider Internal Medicine Cardiovascular Disease
DX: I31.39 Other pericardial effusion (noninflammatory) (principal)
CPT/HCPCS: 93307

== ENCOUNTER → 2025-09-01 18:05 | Outpatient (CLI) | payer OTHER, SELFPAY ==
[2020-11-12 10:59] VITALS: BMI 38.6
--- NOTE | 2025-09-01 18:14 | DI.RAD.S_ITS ---
PROCEDURE: XR LUMBAR SPINE MIN 4V INDICATIONS: lumbar radiculopathy TECHNIQUE: 5 views of the lumbar spine acquired, including flexion and extension views. COMPARISON: None. FINDINGS: Bones: 5 nonrib-bearing vertebrae are present. Trace levocurvature. Mild facet joint arthropathy and endplate sclerosis. There is normal bony alignment. No vertebral body compression fractures. No suspicious bony lesions. Soft tissues: Mild aortic calcification. Overlying bowel gas pattern is normal. No suspicious soft tissue calcifications. Flexion/extension: There is reduced range of motion, without abnormal subluxation. IMPRESSION: Mild lumbar spondylosis. Dictated by: Melba Edmonds [facility] Interpreted: Dominic Harmon MD on 09/02/2025 at 10:41 Transcribed by: ALETA on 09/02/2025 at 10:43 Approved by: Dominic Harmon M.D. on 09/02/2025 at 20:55
== END ==
LOC: RAD 18:11
PROVIDERS: PCP Nurse Practitioner Acute Care; Referring Provider Physician Assistant; Visit Provider Physician Assistant
DX: M47.26 Other spondylosis with radiculopathy, lumbar region (principal)
CPT/HCPCS: 72110